=== PATIENT | female | born 1960 | race Caucasian/White ===

== ENCOUNTER 2018-06-10 05:38 | Day surgery (SDC) | payer BC ==
[2018-06-10] MEDS: BUPIVACAINE 0.5% (MPF) 30 ML INJ EPI
[2018-06-10] MEDS: LIDOCAINE 2% (MDV) 20 ML INJ INJ
[2018-06-10] MEDS ORDERED: CEFAZOLIN 2 GM/50 ML (PMX) 50 ML IVPB (06:00)
[2018-06-10] MEDS ORDERED: PROPOFOL 20 ML (06:26)
[2018-06-10] MEDS ORDERED: GLYCOPYRROLATE 0.4 MG INJ (06:26)
[2018-06-10] MEDS ORDERED: ROCURONIUM 50 MG INJ (06:26)
[2018-06-10] MEDS ORDERED: LIDOCAINE 2% (SDV) 5 ML INJ (06:26)
[2018-06-10] MEDS ORDERED: NEOSTIGMINE 3 MG/3 ML SYRINGE (06:26)
[2018-06-10] MEDS ORDERED: MIDAZOLAM 1 MG/ML 2 ML INJ (06:27)
[2018-06-10] MEDS ORDERED: FENTAnyl 50 MCG/ML VIAL (06:27)
[2018-06-10] MEDS ORDERED: ONDANSETRON 4 MG INJ (06:27)
[2018-06-10] MEDS ORDERED: DEXAMETHASONE 4 MG/ML 1 ML INJ (06:27)
[2018-06-10] MEDS ORDERED: OXYCODONE/ACETAMINOPHEN (5/325) TAB PO ×2 (06:30)
[2018-06-10] MEDS ORDERED: ONDANSETRON 4 MG INJ IV (06:30)
[2018-06-10] MEDS ORDERED: hydrALAzine 20 MG INJ IV (06:30)
[2018-06-10] MEDS ORDERED: DIPHENHYDRAMINE 50 MG INJ IV (06:30)
[2018-06-10] MEDS ORDERED: MIDAZOLAM 1 MG/ML 2 ML INJ IV (06:30)
[2018-06-10] MEDS ORDERED: morphine (1 MG/ML) 10ML SYRINGE IV ×3 (06:30)
[2018-06-10] MEDS ORDERED: ATROPINE 1 MG/10 ML SYRINGE IV (06:30)
[2018-06-10] MEDS ORDERED: LABETALOL HCL 20MG INJ IV (06:30)
[2018-06-10] MEDS ORDERED: FENTAnyl 50 MCG/ML VIAL IV ×2 (06:30)
[2018-06-10] MEDS ORDERED: HYDROmorphONE 1 MG/5 ML IV SYRINGE IV ×3 (06:30)
[2018-06-10] MEDS ORDERED: EPHEDrine SULFATE 50 MG/5 ML SYG IV (06:30)
[2018-06-10] MEDS ORDERED: MEPERIDINE 25 MG INJ IV (06:30)
[2018-06-10] MEDS ORDERED: BUPIVACAINE 0.5% (SDV) 30 ML INJ (06:53)
[2018-06-10] MEDS ORDERED: LIDOCAINE 2% (MDV) 20 ML INJ (06:54)
[2018-06-10] MEDS ORDERED: CEFAZOLIN 1 GM INJ (07:00)
[2018-06-10] MEDS: LACTATED RINGER'S 1,000 ML IV (07:02)
[2018-06-10] MEDS ORDERED: METOCLOPRAMIDE 10 MG INJ (07:47)
[2018-06-10] MEDS ORDERED: ATROPINE 1 MG/10 ML SYRINGE (07:51)
== END 2018-06-10 11:00 | disposition home or self-care (01) ==
LOC: SDS 05:38
DX: L60.0 Ingrowing nail (principal); L03.032 Cellulitis of left toe
CPT/HCPCS: 11750; 88304